=== PATIENT | female | born 1980 | race Hispanic/Latino ===

== ENCOUNTER 2018-06-11 14:52 | Emergency (ER) | payer OTHER ==
[~2018-06-11] VITALS: Ht 154.9 cm; Wt 80.7 kg
[2018-06-11] MEDS ORDERED: HYDROCODONE/APAP 5MG-325MG TAB PO ONE (16:45)
[2018-06-11] MEDS ORDERED: TETANUS/DIPHTHERIA TOX ADULT 0.5 ML SYR IM ONE (16:45)
[2018-06-11] MEDS ORDERED: CLINDAMYCIN PHOS 600 MG/ 4 ML VIAL IM ONE (16:45)
[2018-06-11 17:52] VITALS: BP 124/83
== END 2018-06-11 17:55 | disposition home or self-care (01) ==
LOC: ER 14:52
DX: L02.416 Cutaneous abscess of left lower limb (principal); H91.90 Unspecified hearing loss, unspecified ear
CPT/HCPCS: 10060; 90714; 99283

== ENCOUNTER 2019-05-04 14:31 | Emergency (ER) | payer OTHER ==
[~2019-05-04] VITALS: Ht 149.9 cm; Wt 81.6 kg
--- OUTSIDE RECORDS SUMMARY | 2019-05-04 14:33 | XMS REPORT ---
[facility] Address Unknown Phone Unavailable Care Team Providers Care Web Operations Lead Name Role Phone Unavailable Unavailable Payers Payer Name Policy Type Policy Number Effective Date Expiration Date Problems This patient has no known problems. Allergies, Adverse Reactions, Alerts Allergy Name Allergy Type Status Severity Reaction(s) Onset Date Inactive Date Treating Clinician Comments No Known Allergies DA Active U 2017-05-19 00:00:00 Medications This patient has no known medications.
[2019-05-04 14:59] LABS: BILIRUBIN,URINE NEGATIVE (NEGATIVE); CLARITY,URINE SL CLOUDY (CLEAR); KETONES,URINE NEGATIVE (NEGATIVE); LEUKOCYTE ESTERASE ,URINE NEGATIVE (NEGATIVE); NITRITE,URINE NEGATIVE (NEGATIVE); PROTEIN,URINE DIPSTICK NEGATIVE (NEGATIVE); URINE UROBILINOGEN 0.2 mg/dL (0.2 - 1)
[2019-05-04 15:02] LABS: COLOR,URINE YELLOW (YELLOW)
[2019-05-04 15:10] LABS: BACTERIA,URINE FEW /HPF; EPITHELIAL CELLS,URINE MODERATE /LPF; RBC,URINE 0-5 /HPF (0-5); WBC,URINE (MAN) 0-5 /HPF (0-5)
--- NOTE | 2019-05-04 16:23 | Diagnostic Imaging Report ---
EXAM: CT Abdomen and Pelvis WITHOUT contrast INDICATION: ^LEFT FLANK PAIN ^[id number] ^1530 ^N COMPARISON: None. TECHNIQUE: Abdomen and pelvis were scanned utilizing a multidetector helical scanner from the lung base to the pubic symphysis without administration of IV contrast. Absence of intravenous contrast decreases sensitivity for detection of focal lesions and vascular pathology. Coronal and sagittal reformations were obtained. Routine protocol was performed. IV CONTRAST: None ORAL CONTRAST: Water COMPLICATIONS: None RADIATION DOSE: Total DLP: 392.21 mGy*cm Estimated effective dose: (DLP x 0.015 x size factor) mSv CTDIvol has been reviewed. It is below the limits set by the Radiation Protocol Committee (RPC). FINDINGS: LINES and TUBES: None. LOWER THORAX: Unremarkable HEPATOBILIARY: Unenhanced liver is unremarkable. No biliary ductal dilation. GALLBLADDER: No radio-opaque stones or sludge. No wall thickening. SPLEEN: No splenomegaly. PANCREAS: No focal masses or ductal dilatation. ADRENALS: No adrenal nodules KIDNEYS/URETERS: No hydronephrosis. Limited for evaluation of renal parenchyma without intravenous contrast. No contour deforming renal lesion visualized. No stones. GI TRACT: No abnormal distention, wall thickening, or evidence of bowel obstruction. Appendix is normal. PELVIC ORGANS/BLADDER: Unremarkable. LYMPH NODES: No lymphadenopathy. VESSELS: Unremarkable. PERITONEUM / RETROPERITONEUM: No free air or fluid. BONES: Unremarkable. SOFT TISSUES: Unremarkable. IMPRESSION: 1. No nephrolithiasis or evidence of obstructive urolithiasis. Signed by: Dr. Janak Vizcarra MD on 05/04/2019 4:20 PM
[2019-05-04 17:25] VITALS: BP 111/84
== END 2019-05-04 17:33 | disposition home or self-care (01) ==
LOC: ER 14:31
DX: M54.5 Low back pain (principal); S39.012A Strain of muscle, fascia and tendon of lower back, initial encounter; R42 Dizziness and giddiness; H91.3 Deaf nonspeaking, not elsewhere classified
CPT/HCPCS: 74176; 81001; 81025; 99283